=== PATIENT | male | born 1980 | race Caucasian/White ===

== ENCOUNTER 2024-08-29 09:47 | Inpatient (IN) | payer OTHER, SELFPAY ==
[2024-08-29 09:49] VITALS: BP 134/90; PULSE 89; RESP 20; TEMP 36.7; O2SAT 95
[2024-08-29] MEDS: haloperidol inj 5 mg/mL INJ 1 mL IM (09:58)
--- NOTE | 2024-08-29 10:07 | W.ED.PSYCHS ---
HPI - Psych General: Chief Complaint: Psychiatric Symptoms Stated Complaint: SI Time Seen by Provider: 08/29/24 09:50 Source: patient and EMS Mode of arrival: EMS Limitations: no limitations History of Present Illness: 44-year-old male who is here with EMS for suicidality. Patient states he has been drinking he states became upset because he is having relationship issues he is active suicide without a plan denies any worse improving factors. Associated symptoms: Reports depression and suicidal ideation Related Data Home Medications ?Medication ?Instructions ?Recorded ?Confirmed fluoxetine 40 mg capsule 40 mg PO DAILY 08/29/24 08/29/24 gabapentin 600 mg tablet 600 mg PO TID 08/29/24 08/29/24 hydroxyzine HCl 50 mg tablet 50 mg PO BEDTIME PRN Sleep 08/29/24 08/29/24 multivitamin 1 tab PO DAILY 08/29/24 08/29/24 thiamine HCl (vitamin B1) 100 mg 50 mg PO DAILY 08/29/24 08/29/24 tablet Allergies Allergy/AdvReac Type Severity Reaction Status Date / Time No Known Allergies Allergy Unverified 08/29/24 10:00 Review of Systems Const: Denies: fever(s), chills, body aches or change in appetite ENMT: Denies: throat pain or dental pain Card: Denies: chest pain Resp: Denies: dyspnea GI: Denies: abdominal pain, nausea, vomiting or diarrhea Musc: Denies: neck pain or back pain Skin/Breast: Denies: rash Neuro: Denies: headache(s) Psych: Reports: depression and suicidal ideation Physical Exam Const: COMMON NORMALS: no acute distress, patient oriented x3 and healthy appearing OTHER: intoxicated HENMT: COMMON NORMALS: normocephalic and atraumatic HEAD & SCALP: normocephalic and atraumatic Eye: COMMON NORMALS: conjunctivae normal CONJUNCTIVA: Yes conjunctivae normal Neck/C-Spine: COMMON NORMALS: full ROM and supple Chest: COMMONS NORMALS: normal inspection of the chest Resp: COMMON NORMALS: normal respiratory effort Cardio: COMMON NORMALS: regular rate, regular rhythm and No murmurs present (Cardio) RATE: regular rate RHYTHM: regular rhythm Extremity: COMMON NORMALS: normal to inspection and full ROM Neuro: COMMON NORMALS: patient oriented x3, moves all extremities and no focal motor deficits Psych: COMMON NORMALS: mental status grossly normal, Normal thought process present and cooperative THOUGHT PROCESS: Normal thought process present THOUGHT CONTENT: Yes Suicidality present Skin: COMMON NORMALS: no rashes or lesions noted and no wounds GENERAL SKIN EXAM: no rashes or lesions noted Course Vital Signs: Vital signs: Vital Signs Temperature 98.1 F 08/29/24 09:49 Pulse Rate 89 08/29/24 09:49 Respiratory Rate 20 H 08/29/24 09:49 Blood Pressure 134/90 08/29/24 09:49 Pulse Oximetry 95 08/29/24 09:49 Oxygen Delivery Me thod Room Air 08/29/24 09:49 MDM - Psych Medical Decision Making Patient presents here with suicidal ideation along with alcohol intoxication patient is medically cleared he is placed on 96-hour hold will admit. Medical Records I reviewed the patient's medical records. Lab Data I reviewed the patient's lab results. 08/29/24 10:05 08/29/24 10:05 Laboratory Results WBC 6.81 10^3/uL (3.29-11.43) 08/29/24 10:05 RBC 4.71 10^6/uL (3.85-5.65) 08/29/24 10:05 Hgb 15.30 g/dL (11.27-16.99) 08/29/24 10:05 Hct 45.1 % (37-53) 08/29/24 10:05 MCV 95.8 fl (82-101) 08/29/24 10:05 MCH 32.5 pg (27-33) 08/29/24 10:05 MCHC 33.9 g/dL (30-55) 08/29/24 10:05 RDW 13.1 % (12.1-15.1) 08/29/24 10:05 Plt Count 226 10^3/cmm (157-399) 08/29/24 10:05 MPV 9.6 fL (7.4-10.4) 08/29/24 10:05 Neut % (Auto) 31.1 % 08/29/24 10:05 Lymph % (Auto) 56.8 % 08/29/24 10:05 [place] % (Auto) 9.5 % 08/29/24 10:05 Eos % (Auto) 1.2 % 08/29/24 10:05 Baso % (Auto) 1.3 % 08/29/24 10:05 Neut # (Auto) 2.11 10^3/uL (1.8-7.7) 08/29/24 10:05 Lymph # (Auto) 3.9 10^3/uL (0.8-4.8) 08/29/24 10:05 [place] # (Auto) 0.7 10^3/uL (0.2-0.9) 08/29/24 10:05 Eos # (Auto) 0.1 10^3/uL (0.0-0.8) 08/29/24 10:05 Baso # (Auto) 0.1 10^3/uL (0.0-0.1) 08/29/24 10:05 Nucleated RBC % (auto) 0 % 08/29/24 10:05 Nucleated RBCs # 0.0 /100WBC 08/29/24 10:05 Sodium 142 mmol/L (136-145) 08/29/24 10:05 Potassium 3.5 mmol/L (3.5-5.1) 08/29/24 10:05 Chloride 99 mmol/L (98-107) 08/29/24 10:05 Carbon Dioxide 27 mmol/L (22-29) 08/29/24 10:05 Anion Gap 19.5 (5-19) H 08/29/24 10:05 BUN 4 mg/dL (6-20) L 08/29/24 10:05 Creatinine 0.8 mg/dL (0.7-1.2) 08/29/24 10:05 GFR Calculation 105.5 mL/min (90-130) 08/29/24 10:05 Glucose 107 mg/dL (65-115) 08/29/24 10:05 Calculated Osmolality 291 mOsm/kg (285-295) 08/29/24 10:05 Calcium 9.1 mg/dL (8.5-10.5) 08/29/24 10:05 Total Bilirubin 0.5 mg/dL (0.15-1.2) 08/29/24 10:05 AST 253 U/L (0-40) H 08/29/24 10:05 ALT 78 U/L (0-41) H 08/29/24 10:05 Alkaline Phosphatase 69 U/L (40-130) 08/29/24 10:05 Total Protein 8.0 g/dL (6.6-8.7) 08/29/24 10:05 Albumin 4.9 g/dL (3.5-5.2) 08/29/24 10:05 Globulin 3.1 g/dL (1.3-4.6) 08/29/24 10:05 Salicylates < 0.3 mg/dL (3-10) L 08/29/24 10:05 Acetaminophen < 5.0 ug/mL (10-30) L 08/29/24 10:05 Ethyl Alcohol 441 mg/dL (0-10) H* 08/29/24 10:05 No radiology studies performed this visit Discharge Plan Discharge Patient Disposition: Admitted As Inpatient Admit Provider: Matteo Reis Clinical Impression: Suicidal ideation, Alcohol intoxication Condition: Stable Coding Level of Care Code ED Metal Cabinet Finisher for Margie Alejandre
[2024-08-29 10:10] LABS: Basophils # 0.1 10^3/uL (0.0-0.1); Basophils % 1.3 %; Eosinophils # 0.1 10^3/uL (0.0-0.8); Eosinophils % 1.2 %; Hematocrit 45.1 % (37-53); Lymphocytes # 3.9 10^3/uL (0.8-4.8); Lymphocytes % 56.8 %; Mean Corpuscular HGB Conc 33.9 g/dL (30-55); Mean Corpuscular Hemoglobin 32.5 pg (27-33); Mean Corpuscular Volume 95.8 fl (82-101); Mean Platelet Volume 9.6 fL (7.4-10.4); Monocytes # 0.7 10^3/uL (0.2-0.9); Monocytes % 9.5 %; Neutrophils # 2.11 10^3/uL (1.8-7.7); Neutrophils % 31.1 %; Nucleated Red Blood Cells % 0 %; Platelet Count 226 10^3/cmm (157-399); Red Blood Count 4.71 10^6/uL (3.85-5.65); Red Cell Distribution Width 13.1 % (12.1-15.1); White Blood Count 6.81 10^3/uL (3.29-11.43)
--- NOTE | 2024-08-29 10:11 | PC.PHAR ---
Contacted [facility] [phone]-they verified pt medications, no allergies, [place] [address] [place] [address] [address].
[2024-08-29] MEDS: nicotine 21 mg Patch 1 PATCH TRANSDERMA (10:28)
[2024-08-29 10:35] LABS: Alanine Aminotransferase 78 U/L (0-41); Albumin Level 4.9 g/dL (3.5-5.2); Alkaline Phosphatase 69 U/L (40-130); Anion Gap 19.5 (5-19); Aspartate Amino Transferase 253 U/L (0-40); Blood Urea Nitrogen 4 mg/dL (6-20); Calcium 9.1 mg/dL (8.5-10.5); Carbon Dioxide 27 mmol/L (22-29); Chloride 99 mmol/L (98-107); Globulin 3.1 g/dL (1.3-4.6); Glomerular Filtration Rate 105.5 mL/min (90-130); Glucose 107 mg/dL (65-115); Osmolality Calculated 291 mOsm/kg (285-295); Potassium 3.5 mmol/L (3.5-5.1); Sodium 142 mmol/L (136-145); Total Bilirubin 0.5 mg/dL (0.15-1.2)
[2024-08-29 10:37] LABS: Acetaminophen < 5.0 ug/mL (10-30); Salicylate < 0.3 mg/dL (3-10)
[2024-08-29 10:38] LABS: Alcohol Level 441 mg/dL (0-10)
--- NOTE | 2024-08-29 11:12 | PC.NURSE ---
96 hour hold rights read to patient in ER 9 with security present. Patient stated he did not want to hear them, just give them to him. Corrosion Engineer proceeded to explain his rights and handed patient the paper. Patient verbalized understanding.
[2024-08-29 12:45] VITALS: BP 116/76; PULSE 99; RESP 16; TEMP 36.6; O2SAT 98
--- NOTE | 2024-08-29 13:28 | PC.NURSE ---
Admission Note: Patient arrived to the unit and was notably intoxicated with occasional slurred speech but was able to ambulate independently to his room. Dustin Wiley and I were present for the skin assessment, contraband assessment with use of security wand, and orientation to the room as well as explanation of unit expectations, including 96-hour hold and patient belongings. Upon initiating skin assessment and contraband check, patient seemed agitated. When asked about it, he states that he should just be able to tell us that he doesn't have anything he isn't supposed to and that be it. I apologized and explained that we have to ensure the safety of him, staff, and other patients and validate that he doesn't have any weapons or other items that could be used as weapons on his person. He verbalized understanding and was compliant with the rest of the assessment. He was donned in NPU appropriate scrubs and all skin surfaces were assessed for injury. Patient has multiple tattoos and a small amount of redness on his middle back, right over his spine. He denies any pain at the area and it blanches normally. Socks were removed and feet were assessed with no issues noted. While completing the admission assessment, patient would complain about the questions, then answer the question after complaining. This occurred on more than one occasion, but patient was calm and cooperative by the end of it. He states that he doesn't live in [place], he was staying with a friend in either [place] or [place] (his story changed twice) when he received a call from his ex- stating that she has cancer, so he is trying to get back to [place] to take care of her . Patient was notably anxious 2-3 times during the admission process with crying noted, but this was not constant. Upon suicide risk assessment, patient states I can't answer those questions right now, too many people have screwed me over the years. He had verbalized SI to ED staff and when asked, he states that he was suicidal yesterday, but not today . He reports that he just needs to get sober so he can go take care of his ex-. Overall, patient is pleasant and reports significant history with alcohol and marijuana use but denies other substance abuse. He went back and forth during our conversation about staying in his truck and living with a friend, so I'm not confident in his actual living situation at this time.
[2024-08-29 14:00] VITALS: RESP 17
--- NOTE | 2024-08-29 14:07 | PC.NURSE ---
SEE FLOW SHEET.
[2024-08-29] MEDS: nicotine 2 mg Gum BUCCAL (17:32)
[2024-08-29 19:45] VITALS: BP 125/83; PULSE 104; RESP 18; TEMP 37; O2SAT 99
[2024-08-29 19:53] VITALS: BP 125/83; PULSE 104; RESP 18; TEMP 37; O2SAT 99
[2024-08-29] MEDS: hyDROXYzine 25 mg Capsule 50 MG PO (20:25)
[2024-08-29] MEDS: gabapentin 300 mg Capsule 600 MG PO (20:25)
[2024-08-30] VITALS (7 sets, daily range): BP systolic 117–132; BP diastolic 75–86; PULSE 74–93; RESP 16–20; TEMP 36.5–37.5; O2SAT 98–99
[2024-08-30] MEDS: thiamine 100 mg Tablet 50 MG PO (08:02)
[2024-08-30] MEDS: multivitamin therapeutic Tablet 1 TAB PO (08:03)
[2024-08-30] MEDS: folic acid 1 mg Tablet PO (08:03)
[2024-08-30] MEDS: ondansetron 4 MG Tablet PO (08:03)
[2024-08-30] MEDS: LORazepam 2 mg Tablet PO (08:03)
[2024-08-30] MEDS: fluoxetine 20 mg Capsule 40 MG PO (08:03)
[2024-08-30] MEDS: gabapentin 300 mg Capsule 600 MG PO ×3 (08:03→21:10)
--- NOTE | 2024-08-30 08:16 | PC.NURSE ---
CIWA score of 14, administered 2mg ativan PO. Will recheck CIWA and VS in one hour.
--- NOTE | 2024-08-30 10:00 | W.PM.NPUH&PS ---
Providers/Chief Complaint Admitting Physician: Matteo Reis MD Chief Complaint: SI HPI NPU History of Present Illness Herrera Lockhart is a 44 year old male who presented with a blood alcohol level 441 to the emergency department. He had arrived at the hospital through EMS as he had apparently been imbibing and reporting that he was having suicidal thoughts. Patient was admitted to the neuropsychiatric unit for further evaluation and treatment. He reports that he is 100% service-connected through the [facility] for noncombat related PTSD. He reports that he has been in treatment for alcohol dependence, PTSD, and depression for several years. He reports that he had come down to help a friend's mother in [facility] with her life as she was ill and during his time here she had . He had reported that he had become more distraught after she a few days ago and reported that he began to feel sad and endorsed having suicidal thoughts. He had reported that he continues to consume approximately 1/5 of alcohol a day and reports a history of alcohol withdrawal symptoms including blackouts and seizures. He reports that he has frequent flashbacks and nightmares. He reports that he avoids specific places that bring back trauma. He reports that he had been feeling more hopeless and worthless. He reports that he has a foreshortened sense of future and reports that he is easily startled and extra vigilant about something bad happening to him. He reports that he has been receiving individual psychotherapy in [facility] through the [facility]. He had reported no current plan to harm himself. He had reported no other recent stressors leading to his change in mood and presence of suicidal ideation. He had denied any history of panic symptoms. He did not endorse any symptoms suggestive of bipolar disorder. He denied any psychosis. Inpatient psychiatric history: He had reported previous inpatient psychiatric hospitalizations. He had reported no prior history of suicide attempts. Outpatient psychiatric history: He is currently receiving psychotherapy and medication management through the [facility] in [facility]. Substance abuse history: He has reported 4 different inpatient substance abuse treatments in his lifetime. He had reported trials for alcohol dependence including Vivitrol. He had reported no other illicit drug use. 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 Legal history: History of DUIs in the past. Family psychiatric history: alcoholism-paternal, PTSD=paternal side of family Developmental history: The patient had reported having a learning disability that he overcame later in late adolescence. Social history: Patient has grown up in the [facility]. He reports that he has some siblings. He currently lives in the [facility]. He reports that he had been previously . 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 Meds NPU Home Medications ?Medication ?Instructions ?Recorded ?Confirmed ?Last Taken ?Type fluoxetine 40 mg capsule 40 mg PO DAILY 08/29/24 08/29/24 Unknown History gabapentin 600 mg tablet 600 mg PO TID 08/29/24 08/29/24 Unknown History hydroxyzine HCl 50 mg tablet 50 mg PO BEDTIME PRN Sleep 08/29/24 08/29/24 Unknown History multivitamin 1 tab PO DAILY 08/29/24 08/29/24 Unknown History thiamine HCl (vitamin B1) 100 mg 50 mg PO DAILY 08/29/24 08/29/24 Unknown History tablet Allergies Allergy/AdvReac Type Severity Reaction Status Date / Time No Known Allergies Allergy Unverified 08/29/24 10:00 Mental Status Exam MSE Comments: Patient is a healthy young male who appeared his stated age with fleeting eye contact and somewhat guarded on interview. He was alert and oriented x3. He appeared in no acute distress. He was hypervigilant. He is gait appeared adequate. His hygiene was fair. There was no evidence of any abnormal involuntary motor movements, tics, or tremors appreciated. His speech was normal in regards to rate, rhythm, and prosody. His mood was described as okay. His affect appeared slightly restricted. His thought process was linear, logical, and goal-directed. His thought content revealed no active suicidal or homicidal ideation at this time. He denied any auditory or visual hallucinations. He did not appear to be responding to internal stimuli. His attention span appeared fair. His recent and remote memory were fair. His insight was poor. His judgment was poor. His impulse control appeared limited. Vitals/I&O/Wt Last Vital Signs Temp 98.9 F 08/30/24 09:29 Pulse 83 08/30/24 09:29 Resp 18 08/30/24 09:29 BP 122/81 08/30/24 09:29 Pulse Ox 98 08/30/24 09:29 O2 Del Method Room Air 08/29/24 12:49 Weight last 48 hrs Weight 90.718 kg Data NPU 08/29/24 10:05 08/29/24 10:05 A&P Assessment and plan (1) MDD (major depressive disorder), recurrent severe, without psychosis: (2) Suicidal ideation: (3) Alcohol intoxication: (4) Alcohol dependence with acute intoxication, continuous: (5) PTSD (post-traumatic stress disorder): Plan 44-year-old male with alcohol dependence, PTSD and major depressive disorder admitted with reports of suicidal ideation and increased alcohol consumption with a history of significant alcohol related withdrawal symptoms. The patient would likely continue to require inpatient hospitalization. #1.? Engage patient in individual milieu and group therapy. #2?? Recommend sober living treatment at the highest level of care to which the patient is willing to commit #3??? CIWA for alcohol withdrawal #4?? TO-15 minute checks? #5?? Restart outpatient medications and monitor under 96 hour hold. Patient rejected other medication changes at this time. Patient likely to benefit from inpatient substance abuse treatment at [place]. PDMP PDMP Reviewed: Not Reviewed Involuntary Hold Information Hold Status: Legal Status: 96 Hour Hold Date/Time Hold Expires: 09/04/24 @ 10:06 Attestations U Medical Necessity Statement*: Inpatient hospitalization is medically necessary and deemed to ?be ?the clinically appropriate intervention ?at this time.? We will monitor/initiate medications and make changes as indicated.? The patient will be hospitalized for at least two midnights. The patient?s likely length of stay 5-7 days. Coding Level of Care Code Acute Code for [facility] Fwd Diagnoses MDD (major depressive disorder), recurrent severe, without psychosis F33.2 Suicidal ideation R45.851 Alcohol intoxication F10.929 Alcohol dependence with acute intoxication, continuous F10.229 PTSD (post-traumatic stress disorder) F43.10
[2024-08-30] MEDS: hyDROXYzine 25 mg Capsule 50 MG PO (21:10)
[2024-08-30] MEDS: trazodone 50 mg Tablet PO (21:10)
--- NOTE | 2024-08-31 01:36 | PC.NURSE ---
vs not compleeted per charge nurse resp 17
[2024-08-31 04:00] VITALS: BP 116/84; PULSE 90; RESP 17; TEMP 36.7; O2SAT 99
[2024-08-31 07:34] VITALS: BP 138/70; PULSE 90; RESP 18; TEMP 36.9; O2SAT 94
[2024-08-31] MEDS: thiamine 100 mg Tablet 50 MG PO (08:00)
[2024-08-31] MEDS: gabapentin 300 mg Capsule 600 MG PO ×3 (08:00→20:01)
[2024-08-31] MEDS: folic acid 1 mg Tablet PO (08:00)
[2024-08-31] MEDS: multivitamin therapeutic Tablet 1 TAB PO (08:01)
[2024-08-31] MEDS: fluoxetine 20 mg Capsule 40 MG PO (08:01)
[2024-08-31 12:00] VITALS: BP 112/78; PULSE 118; RESP 18; TEMP 36.6; O2SAT 98
[2024-08-31 14:12] LABS: Amphetamines Screen Urine Negative (Negative); Barbiturates Screen Urine Negative (Negative); Benzodiazepines Screen Urine Positive (Negative); Cocaine Screen Urine Negative (Negative); Opiate Screen Urine Negative (Negative); PCP Screen Urine Negative (Negative); THC Screen Urine Positive (Negative)
--- NOTE | 2024-08-31 14:25 | P.NPUPN_ITS ---
Subjective NPU 2 Subjective: Patient presented today reporting that he was feeling okay. He reports that he had some difficulties that led to his hospitalization but denied currently having any problems and was hopeful for discharge. We discussed the fact that he had discussed discharge with Dr. Reis for today but we agreed that we had not had a conversation about that at this point. We agreed that this senior mortgage underwriter will review this with Dr. Reis and if this was the case that we would agree to discharge in the morning. Mental Status Exam 2 MSE Comments: Patient is a healthy young male who appeared his stated age with fleeting eye contact and somewhat guarded on interview. He was alert and oriented x3. He appeared in no acute distress. He was hypervigilant. He is gait appeared adequate. His hygiene was fair. There was no evidence of any abnormal involuntary motor movements, tics, or tremors appreciated. His speech was normal in regards to rate, rhythm, and prosody. His mood was described as okay. His affect appeared slightly restricted. His thought process was linear, logical, and goal-directed. His thought content revealed no active suicidal or homicidal ideation at this time. He denied any auditory or visual hallucinations. He did not appear to be responding to internal stimuli. His attention span appeared fair. His recent and remote memory were fair. His insight was poor. His judgment was poor. His impulse control appeared limited. Vitals/I&O/Wt Last Vital Signs Temp 98 F 08/31/24 12:00 Pulse 118 H 08/31/24 12:00 Resp 18 08/31/24 12:00 BP 112/78 08/31/24 12:00 Pulse Ox 98 08/31/24 12:00 O2 Del Method Room Air 08/31/24 04:00 Data NPU 08/29/24 10:05 08/29/24 10:05 A&P Assessment and plan (1) MDD (major depressive disorder), recurrent severe, without psychosis: (2) Suicidal ideation: (3) Alcohol intoxication: (4) Alcohol dependence with acute intoxication, continuous: (5) PTSD (post-traumatic stress disorder): Plan 44-year-old male with alcohol dependence, PTSD and major depressive disorder admitted with reports of suicidal ideation and increased alcohol consumption with a history of significant alcohol related withdrawal symptoms. The patient would likely continue to require inpatient hospitalization. #1.? Engage patient in individual milieu and group therapy. #2?? Recommend sober living treatment at the highest level of care to which the patient is willing to commit #3??? CIWA for alcohol withdrawal #4?? TO-15 minute checks? #5?? Restart outpatient medications and monitor under 96 hour hold. Patient rejected other medication changes at this time. Patient likely to benefit from inpatient substance abuse treatment at [place]. PDMP PDMP Reviewed: Not Reviewed Involuntary Hold Information 2 Hold Status: Legal Status: 96 Hour Hold Date/Time Hold Expires: 09/04/24 @ 10:06 Attestations NPU 2 Medical Necessity Statement*: Inpatient hospitalization is medically necessary and deemed to ?be ?the clinically appropriate intervention ?at this time.? We will monitor/initiate medications and make changes as indicated.? The patient?s likely length of stay 1-2 days. Coding Level of Care Code Acute Code for g Fwd Diagnoses MDD (major depressive disorder), recurrent severe, without psychosis F33.2 Suicidal ideation R45.851 Alcohol intoxication F10.929 Alcohol dependence with acute intoxication, continuous F10.229 PTSD (post-traumatic stress disorder) F43.10
[2024-08-31 16:00] VITALS: BP 139/86; PULSE 110; RESP 18; TEMP 37.2; O2SAT 98
[2024-08-31 20:00] VITALS: BP 129/77; PULSE 91; RESP 18; TEMP 37.3; O2SAT 98
[2024-08-31] MEDS: trazodone 50 mg Tablet PO (20:01)
[2024-08-31] MEDS: hyDROXYzine 25 mg Capsule 50 MG PO (20:01)
[2024-09-01] VITALS: BP 100/71; PULSE 94; RESP 16; O2SAT 97
[2024-09-01 04:00] VITALS: BP 126/85; PULSE 67; RESP 17; TEMP 36.8; O2SAT 98
[2024-09-01 08:00] VITALS: BP 123/91; PULSE 93; RESP 17; O2SAT 100
[2024-09-01] MEDS: fluoxetine 20 mg Capsule 40 MG PO (09:41)
[2024-09-01] MEDS: gabapentin 300 mg Capsule 600 MG PO (09:41)
[2024-09-01] MEDS: multivitamin therapeutic Tablet 1 TAB PO (09:42)
[2024-09-01] MEDS: thiamine 100 mg Tablet 50 MG PO (09:42)
[2024-09-01] MEDS: folic acid 1 mg Tablet PO (09:42)
--- NOTE | 2024-09-01 10:54 | P.NPUDS_ITS ---
Diagnoses at Discharge Discharge Diagnosis (1) MDD (major depressive disorder), recurrent severe, without psychosis: Status: Acute (2) Suicidal ideation: Status: Acute (3) Alcohol intoxication: Status: Acute (4) Alcohol dependence with acute intoxication, continuous: Status: Acute (5) PTSD (post-traumatic stress disorder): Status: Acute Reason for Visit Reason for Visit: SI Involuntary Hold Information Hold Status: Legal Status: 96 Hour Hold Date/Time Hold Expires: 09/04/24 @ 10:06 Discharge Data Studies Completed and Pending: Laboratory Results WBC 6.81 10^3/uL (3.2 9-11.43) 08/29/24 10:05 RBC 4.71 10^6/uL (3.8 5-5.65) 08/29/24 10:05 Hgb 15.30 g/dL (11.27 -16.99) 08/29/24 10:05 Hct 45.1 % (37-53) 08/29/24 10:05 MCV 95.8 fl (82-101) 08/29/24 10:05 MCH 32.5 pg (27-33) 08/29/24 10:05 MCHC 33.9 g/dL (30-55) 08/29/24 10:05 RDW 13.1 % (12.1-15.1 ) 08/29/24 10:05 Plt Count 226 10^3/cmm (157 -399) 08/29/24 10:05 MPV 9.6 fL (7.4-10.4) 08/29/24 10:05 Neut % (Auto) 31.1 % 08/29/24 10:05 Lymph % (Auto) 56.8 % 08/29/24 10:05 [place] % (Auto) 9.5 % 08/29/24 10:05 Eos % (Auto) 1.2 % 08/29/24 10:05 Baso % (Auto) 1.3 % 08/29/24 10:05 Neut # (Auto) 2.11 10^3/uL (1.8 -7.7) 08/29/24 10:05 Lymph # (Auto) 3.9 10^3/uL (0.8- 4.8) 08/29/24 10:05 [place] # (Auto) 0.7 10^3/uL (0.2- 0.9) 08/29/24 10:05 Eos # (Auto) 0.1 10^3/uL (0.0- 0.8) 08/29/24 10:05 Baso # (Auto) 0.1 10^3/uL (0.0- 0.1) 08/29/24 10:05 Nucleated RBC % (a uto) 0 % 08/29/24 10:05 Nucleated RBCs # 0.0 /100WBC 08/29/24 10:05 Sodium 142 mmol/L (136-1 45) 08/29/24 10:05 Potassium 3.5 mmol/L (3.5-5 .1) 08/29/24 10:05 Chloride 99 mmol/L (98-107 ) 08/29/24 10:05 Carbon Dioxide 27 mmol/L (22-29) 08/29/24 10:05 Anion Gap 19.5 (5-19) H 08/29/24 10:05 BUN 4 mg/dL (6-20) L 08/29/24 10:05 Creatinine 0.8 mg/dL (0.7-1. 2) 08/29/24 10:05 GFR Calculation 105.5 mL/min (90- 130) 08/29/24 10:05 Glucose 107 mg/dL (65-115 ) 08/29/24 10:05 Calculated Osmolal ity 291 mOsm/kg (285- 295) 08/29/24 10:05 Calcium 9.1 mg/dL (8.5-10 .5) 08/29/24 10:05 Total Bilirubin 0.5 mg/dL (0.15-1 .2) 08/29/24 10:05 AST 253 U/L (0-40) H 08/29/24 10:05 ALT 78 U/L (0-41) H 08/29/24 10:05 Alkaline Phosphata se 69 U/L (40-130) 08/29/24 10:05 Total Protein 8.0 g/dL (6.6-8.7 ) 08/29/24 10:05 Albumin 4.9 g/dL (3.5-5.2 ) 08/29/24 10:05 Globulin 3.1 g/dL (1.3-4.6 ) 08/29/24 10:05 Salicylates < 0.3 mg/dL (3-10 ) L 08/29/24 10:05 Urine Opiates Scre en Negative ng/mL (N egative) 08/31/24 12:00 Acetaminophen < 5.0 ug/mL (10-3 0) L 08/29/24 10:05 Ur Barbiturates Sc reen Negative ng/mL (N egative) 08/31/24 12:00 Ur Phencyclidine S crn Negative ng/mL (N egative) 08/31/24 12:00 Ur Amphetamines Sc reen Negative ng/mL (N egative) 08/31/24 12:00 U Benzodiazepines Scrn Positive ng/mL (N egative) H 08/31/24 12:00 Urine Cocaine Scre en Negative ng/mL (N egative) 08/31/24 12:00 U Marijuana (THC) Screen Positive ng/mL (N egative) H 08/31/24 12:00 Ethyl Alcohol 441 mg/dL (0-10) H* 08/29/24 10:05 Vitals: Last Vital Signs Temp 98.3 F 09/01/24 04:00 Pulse 93 09/01/24 08:00 Resp 17 09/01/24 08:00 BP 123/91 09/01/24 08:00 Pulse Ox 100 09/01/24 08:00 O2 Del Method Room Air 08/31/24 04:00 Discharge Plan Discharge Patient Disposition: Home Condition: Stable Prescriptions: Continued multivitamin Tablet 1 tab PO DAILY fluoxetine 40 mg Capsule 40 mg PO DAILY 30 Days Qty: 30 1RF gabapentin 600 mg Tablet 600 mg PO TID 30 Days Qty: 90 1RF thiamine HCl (vitamin B1) 100 mg Tablet 50 mg PO DAILY 30 Days Qty: 30 1RF hydroxyzine HCl 50 mg Tablet 50 mg PO BEDTIME PRN (Reason: Sleep) 30 Days Qty: 30 1RF Discharge Orders: Discharge Order (Routine); Ordered 09/01/24 Ordered By: Curtis Pelayo Referrals: [facility] [Other] - 09/06/24 9:00 am Referral Note: Appointment by telehealth with electrical maintenance worker Ermias Malave. Dr. Jose Antonio Covington MD [Other] Discharge Diet: Regular Discharge Activity: Resume usual activity Patient Instructions: Alcoholism, Opioid Safety Discharge Attestations NPU Time Spent in Discharge Care*: less than 30 min Specific Discharge Activities: Specific discharge activities: educating patient, discussing with telephonic case manager/social workers/dc planners, documenting/other paperwork and evaluating patient/reviewing data Coding Level of Care Code Acute Code for [facility] Fwd Diagnoses MDD (major depressive disorder), recurrent severe, without psychosis F33.2 Suicidal ideation R45.851 Alcohol intoxication F10.929 Alcohol dependence with acute intoxication, continuous F10.229 PTSD (post-traumatic stress disorder) F43.10
[2024-09-01 11:10] VITALS: BP 123/91; PULSE 93; RESP 17; O2SAT 100
== END 2024-09-01 11:36 | disposition home or self-care (01) | DRG 885 ==
LOC: ER 10:32 → NP 12:07
PROVIDERS: Admitting Provider Psychiatry & Neurology Psychiatry; Emergency Provider Emergency Medicine; Visit Provider Psychiatry & Neurology Psychiatry
DX: F33.2 Major depressive disorder, recurrent severe without psychotic features (principal); R45.851 Suicidal ideations; F10.229 Alcohol dependence with intoxication, unspecified; Y90.8 Blood alcohol level of 240 mg/100 ml or more; F43.10 Post-traumatic stress disorder, unspecified; Z63.4 Disappearance and death of family member; Z87.898 Personal history of other specified conditions; Z81.1 Family history of alcohol abuse and dependence
CPT/HCPCS: 36415; 80053; 80306; 80307; 85025; 96372; 97150; 97165; 99285; J1630; J9999; Q0162